=== PATIENT | male | born 1950 | race Caucasian/White ===

== ENCOUNTER 2022-07-19 16:42 | Inpatient (IN) | payer OTHER ==
[~2022-07-19] VITALS: Ht 177.8 cm; Wt 74.8 kg
[2022-07-19 17:17] LABS: BASOPHILS ABSOLUTE AUTO 0.04 K/mm3 (0.00-0.23); BASOPHILS PERCENT AUTO 1 % (0-2); EOSINOPHILS ABSOLUTE AUTO 0.23 K/mm3 (0.00-0.68); EOSINOPHILS PERCENT AUTO 3 % (0-6); Hematocrit 42.3 % (37.0-53.0); IMMATURE GRAN ABSOLUTE AUTO 0.04 K/mm3 (0.00-0.10); IMMATURE GRAN PERCENT AUTO 1 % (0-1); LYMPHOCYTES ABSOLUTE AUTO 2.21 K/mm3 (0.84-5.20); LYMPHOCYTES PERCENT AUTO 31 % (21-46); MONOCYTES ABSOLUTE AUTO 0.45 K/mm3 (0.16-1.47); MONOCYTES PERCENT AUTO 6 % (4-13); Mean Corpuscular HGB 30.9 pg (26.0-34.0); Mean Corpuscular HGB Conc 35.5 g/dL (31.5-36.5); Mean Corpuscular Volume 87 fL (80-100); Mean Platelet Volume 9.1 fL (9.1-12.4); NEUTROPHILS ABSOLUTE AUTO 4.07 K/mm3 (1.96-9.15); NEUTROPHILS PERCENT AUTO 58 % (41-73); Platelet Count 249 K/mm3 (150-400); RDW Coefficient Variation 11.8 % (11.7-14.2); RDW Standard Deviation 37.7 fL (35.1-46.3); Red Blood Cell Count 4.85 M/mm3 (4.30-5.90); White Blood Cell Count 7.04 K/mm3 (4.00-11.30)
[2022-07-19 17:29] LABS: Albumin, Blood 3.7 g/dL (3.4-5.0); Albumin/Globulin Ratio 1.2 (0.8-1.8); Bilirubin, Total 0.6 mg/dL (0.1-1.0); Bun/Creatinine Ratio 13.2 (12.0-20.0); Calcium, Blood 8.9 mg/dL (8.5-10.1); Creatinine, Blood 0.83 mg/dL (0.60-1.20); Globulin, Blood 3.1 g/dL (2.2-4.0); Potassium, Blood 3.4 mmol/L (3.5-5.5); Total Protein, Blood 6.8 g/dL (6.4-8.2)
[2022-07-19 19:37] LABS: Source, Urine Clean Catch
[2022-07-19 19:42] LABS: Appearance, Urine Clear (Clear); Bilirubin, Urine Neg (Neg); Blood, Urine Neg (Neg); Color, Urine Yellow (P-Yellow); Glucose Qualitative, Urine Neg (Neg); Ketones, Urine 2+ (Neg); Leukocyte Esterase, Urine Neg (Neg); Nitrite, Urine Neg (Neg); Protein, Urine Neg (Neg); Urobilinogen, Urine NORM (Normal)
[2022-07-19 22:55] LABS: Magnesium, Blood 1.8 mg/dL (1.6-2.4)
[2022-07-20 06:22] LABS: CHOL/HDL RATIO 4.5; Cholesterol 267 mg/dL (50-200); HDL Cholesterol 59 mg/dL (>39); LDL/HDL RATIO 3.1; Low Density Lipoprotein Chol 181 mg/dL (0-110); Triglycerides 137 mg/dL (30-160); Very Low Density Lipoprot Chol 27 mg/dL (6-32)
[2022-07-20] MEDS ORDERED: ALLEREST (14:25)
--- NOTE | 2022-07-20 14:26 | NUR ---
REPORT RECEIVED FROM FREDY AREVALO IN ER. PT TX TO ROOM 306 VIA [facility] AT 1345. PT A/O X 4. PT REPORTS FEELING UNSTEADY ON FEET. PT DENIES PAIN/N/V OR DIARRHEA. PT REPORTS FEELING "FUNNY" DENIES DIZZINESS. PT HAS NO NEURO DEFICITS AT THIS TIME OTHER THAN HIS STATEMENT OF FEELING FUNNY AND REPORTED UNSTEADINESS. PT EDUCATED ON FALL PRECAUTIONS AND BED ALARM SET.
--- NOTE | 2022-07-21 05:25 | NUR ---
SHIFT SUMMARY PT AOX4, PLEASANT AND COOPERATIVE WITH CARE. PT REMAINS ON CIWA PROTOCOL HOWEVER HE SCORED NO HIGHER THAN A TOTAL SCORE OF 1 ALL NIGHT. PT REMAINS UNSTEAD ON HIS FEET WITH R SIDED WEAKNESS, HE IS A 1 PERSON SBA TO THE BATHROOM. PT STATES HE IS UNHAPPY WITH BEING IN THE HOSPITAL AND WANTS TO GO OUTSIDE FOR A WALK OR AT LEAST WALK AROUND THE UNIT. PT'S HEAD MRI RESULTS ARE AVAILABLE. PT HAS NO NEURO DEFICITS OTHER THAN UNSTEADYNESS ON HIS FEET. NO ACUTE EVENTS T/O SHIFT.
[2022-07-21] MEDS ORDERED: ATOR80 PO (15:14)
[2022-07-21] MEDS ORDERED: ASPI81CH PO (15:14)
[2022-07-21] MEDS ORDERED: VITAMIN B-1100 MG PO (15:15)
[2022-07-21] MEDS ORDERED: CLOP75 PO (15:15)
[2022-07-21] MEDS ORDERED: FOLI1 PO (15:15)
--- NOTE | 2022-07-21 15:34 | NUR ---
PATIENT DISCHARGED AT 1522. BUILDING TRADES INSTRUCTOR PULLED BOTH IVS. PATIENT PUSHED IN WHEELCHAIR OUT TO HIS CAR IN THE [place] PARKING LOT. FWW WAS BROUGHT TO THE PATIENT PRIOR TO HIS DISCHARGE. THE PATIENT'S DAUGHTER WAS CALLED BY TELEPHONE AND NOTIFIED OF HER FATHERS [place] [facility].
== END 2022-07-21 15:26 | disposition home or self-care (01) | DRG 65 ==
LOC: ER 16:42 → ERHOLD 16:43 → MEDS 07-20 13:51
PROVIDERS: Emergency Medicine; Nurse Practitioner Acute Care; Student in an Organized Health Care Education/Training Program; ADMIT Family Medicine
PROC: HZ2ZZZZ Detoxification Services for Substance Abuse Treatment (ICD-10-PCS; principal; 2022-07-20)
DX: I63.81 Other cerebral infarction due to occlusion or stenosis of small artery (principal); F10.239 Alcohol dependence with withdrawal, unspecified; G45.9 Transient cerebral ischemic attack, unspecified; R20.0 Anesthesia of skin; I10 Essential (primary) hypertension; I44.7 Left bundle-branch block, unspecified; E78.00 Pure hypercholesterolemia, unspecified; Z86.73 Personal history of transient ischemic attack (TIA), and cerebral infarction without residual deficits
CPT/HCPCS: 36415; 70450; 70496; 70498; 70551; 80053; 80061; 81003; 82550; 83036; 83735; 85025; 93005; 93010; 96361; 96365; 96372-59; 97116; 97162; 97165; 97530; 99285-25; A9270; G0378; G0480; J1650; J2405; J3475; J7030; J7120; Q9967